=== PATIENT | female | born 1950 | race Caucasian/White ===

== ENCOUNTER 2022-08-07 11:02 | Outpatient (CLI) | payer MEDICARE, SELFPAY ==
[2022-08-07 21:53] LABS: Chloride* 103 mmol/L (96-114); Sodium* 138 mmol/L (135-149)
[2022-08-07 21:54] LABS: Potassium* 4.3 mmol/L (3.6-5.1)
[2022-08-07 21:56] LABS: Blood Urea Nitrogen* 17 mg/dL (7-30); Carbon Dioxide* 28 mmol/L (20-32); Cholesterol* 165 mg/dL (90-199); Creatinine* 0.7 mg/dL (0.5-1.5); Estimated Glomerular Filt Rate 93 ml/min
[2022-08-07 21:57] LABS: Calcium* 10.2 mg/dL (8.4-10.6); Glucose* 97 mg/dL (60-115); HDL Cholesterol* 34 mg/dL (>=50); LDL Cholesterol Calculated 58 mg/dL (<100); Triglycerides* 366 mg/dL (40-149)
== END 2022-08-07 11:03 | disposition home or self-care (01) ==
PROVIDERS: PCP Emergency Medicine; Visit Provider Emergency Medicine
DX: E78.5 Hyperlipidemia, unspecified (principal); I10 Essential (primary) hypertension; D64.9 Anemia, unspecified
CPT/HCPCS: 80048; 80061

== ENCOUNTER 2022-09-02 15:50 | Outpatient (CLI) | payer MEDICARE, SELFPAY | END 2022-09-02 15:51 | disposition home or self-care (01) | LOC: LKVREF 09-04 13:04 | PROVIDERS: PCP Emergency Medicine; Visit Provider Nurse Practitioner Family | DX: R30.0 Dysuria (principal); N39.0 Urinary tract infection, site not specified | CPT/HCPCS: 87086 ==

== ENCOUNTER 2022-11-20 10:55 | Outpatient (CLI) | payer MEDICARE, SELFPAY ==
[2022-11-20 21:57] LABS: Chloride* 101 mmol/L (96-114); Sodium* 137 mmol/L (135-149)
[2022-11-20 21:58] LABS: Potassium* 4.6 mmol/L (3.6-5.1)
[2022-11-20 22:00] LABS: Carbon Dioxide* 29 mmol/L (20-32); Creatinine* 0.8 mg/dL (0.5-1.5); Estimated Glomerular Filt Rate 79 ml/min
[2022-11-20 22:01] LABS: Blood Urea Nitrogen* 14 mg/dL (7-30); Calcium* 9.6 mg/dL (8.4-10.6); Glucose* 113 mg/dL (60-115)
== END 2022-11-20 10:56 | disposition home or self-care (01) ==
LOC: LKVREF 10:56
PROVIDERS: PCP Emergency Medicine; Visit Provider Emergency Medicine
DX: I10 Essential (primary) hypertension (principal); H35.60 Retinal hemorrhage, unspecified eye
CPT/HCPCS: 80048

== ENCOUNTER 2022-11-26 17:19 | Emergency (ER) | payer MEDICARE, SELFPAY ==
[2022-11-26] VITALS (7 sets, daily range): BP systolic 114–140; BP diastolic 55–62; PULSE 70–74; RESP 16–18; TEMP 36.6–36.7; O2SAT 95–100; BMI 20.7
--- NOTE | 2022-11-26 18:41 | ED.GENADULT ---
HPI - General Adult General Time Seen by Provider: 18:41 Date Seen: 11/26/22 Chief complaint: Weakness Stated complaint: Dehydrated Low Hemoglobin Time Seen by Provider: 11/26/22 18:29 Source: patient Mode of arrival: ambulatory Limitations: no limitations History of Present Illness HPI narrative: Patient is a 71 year white female who presents with her significant other, she has had weakness over the last couple of days. She has had no fever she has had no chills. She has had no cough, or chest pain. No leg swelling or edema. She feels she has not drank water and off over the last few days. She reports she has very poor water drinker. She has felt like this when she has had a low hemoglobin and when she has been dehydrated. Her hemoglobin done a few days ago was unremarkable she took a couple baby aspirins recently but usually is not on a blood thinner by her report she sees. She sees Dr. Rod for primary care. Has history of iron deficiency anemia. She takes iron her stools are typically dark. She has noticed no change in this no bright red blood per rectum Related Data Home Medications Medication Instructions Recorded Confirmed ropinirole 0.25 mg tablet 0.25 mg PO TID 05/02/22 11/26/22 cholecalciferol (vitamin D3) 25 1,000 unit PO DAILY 08/07/22 11/26/22 mcg (1,000 unit) tablet Previous Rx's Medication Instructions Recorded iron,carbonyl 65 mg-vitamin C 125 1 tab PO QDAY #90 tabs 06/10/22 mg tablet,delayed release (Vitron-C) metoprolol tartrate 50 mg tablet 50 mg PO BID #180 tabs 08/07/22 omeprazole 40 mg capsule,delayed 40 mg PO QDAY #90 caps 08/07/22 release ropinirole 0.25 mg tablet 0.25 mg PO TID PRN restless leg 08/07/22 syndrome #90 tabs hydrocodone 5 mg-acetaminophen 325 1 tab PO Q4H PRN PA D #60 tabs 10/14/22 mg tablet fluoxetine 20 mg capsule 40 mg PO QDAY #60 caps 11/20/22 rosuvastatin 20 mg tablet 20 mg PO QDAY #90 tabs 11/20/22 Allergies Allergy/AdvReac Type Severity Reaction Status Date / Time No Known Drug Allergies Allergy Verified 11/26/22 18:27 Review of Systems Status of ROS: Reports: 10 or more systems reviewed and unremarkable except as noted in History and below [facility] Medical History Claudication in peripheral vascular disease Noble of toe Depression Dilatation of thoracic aorta GERD (gastroesophageal reflux disease) GI bleed Iron deficiency anemia Peripheral artery disease Restless leg syndrome Retinal hemorrhage Family History Other Arun-Danlos syndrome Social History Narrative: Former smoker Smoking Status: Former smoker Do you use any of these nicotine containing products: None Second hand tobacco smoke exposure: No How often do you have a drink containing alcohol: never How often do you have six or more drinks on one occasion: Never AUDIT-C Alcohol total score: 0 Non-prescribed substance use: denies use Little interest or pleasure in doing things: not at all Feeling down, depressed, or hopeless: nearly every day service: No Exam Narrative: Exam Narrative: Objective: Patient's vital signs are unremarkable in general she is in no apparent distress No cyanosis Mouth is slightly dry Neck is supple Pulse regular Abdomen benign soft nontender , extremities are no edema, neurologic nonfocal Skin warm and dry Const: Vital Signs, click to edit/add: Vital Signs - 24 hr 11/26/22 18:27 11/26/22 19:08 11/26/22 19:15 Temperature 97.8 F Pulse Rate 71 74 Pulse Rate [Pulse Oximeter] 71 Respiratory Rate 18 Blood Pressure [Le ft Upper Arm] 123/59 L Pulse Oximetry 98 97 96 Oxygen Delivery Me thod Room Air 11/26/22 19:30 11/26/22 19:45 11/26/22 20:00 Temperature Pulse Rate 72 Pulse Rate [Pulse Oximeter] 72 74 Respiratory Rate 16 16 Blood Pressure [Le ft Upper Arm] 133/55 L 140/59 H Pulse Oximetry 97 100 100 Oxygen Delivery Me thod Room Air Room Air Course Vital Signs Vital signs: Initial Vital Signs Temperature 97.8 F 11/26/22 18:27 Temperature Source Temporal Artery Scan 11/26/22 18:27 Pulse Rate 71 11/26/22 18:27 Pulse Rhythm 11/26/22 18:27 Respiratory Rate 18 11/26/22 18:27 Blood Pressure 123/59 L 11/26/22 18:27 Blood Pressure Mean 80 11/26/22 18:27 Blood Pressure Position Supine 11/26/22 18:27 Pulse Oximetry 98 11/26/22 18:27 Oxygen Delivery Method 11/26/22 18:27 Vital Signs Temperature 97.8 F 11/26/22 18:27 Pulse Rate 71 11/26/22 18:27 Respiratory Rate 18 11/26/22 18:27 Blood Pressure 123/59 L 11/26/22 18:27 Pulse Oximetry 98 11/26/22 18:27 Oxygen Delivery Method 11/26/22 18:27 Temperature 97.8 F 11/26/22 18:27 Pulse Rate 74 11/26/22 20:00 Respiratory Rate 16 11/26/22 20:00 Blood Pressure 140/59 H 11/26/22 20:00 Pulse Oximetry 100 11/26/22 20:00 Oxygen Delivery Method 11/26/22 20:00 Medical Decision Making [facility] Narrative Medical decision making narrative: Patient is a 71 year white female with poor p.o. intake with a fluids, has history of anemia as well as dehydration. Will rehydrate with saline, check lab study including a heme 4 and basic 7. Because of her fatigue will also check a COVID/influenza/RSV swab. Her clinical examination looks unremarkable, her vital signs look reassuring. If these labs are reassuring and she gets fluid I think she can probably go home later today. She was in agreement with this plan. Addendum: The patient's hemoglobin is 8. She has required transfusions in the past. She has intermittent GI bleeding. She has had endoscopy upper and lower in the past. She is on iron replacement. I think it be reasonable to give her a unit of blood. And then have her follow up with primary care in the next day or 2 to recheck hemoglobin. I do not think she needs to stay in the hospital at this point given her hemodynamics are stable. She is in agreement with this plan. Due to the volume in the ER the patient will be transfer the hospital floor with her a beds available for transfusion. The patient can then be discharged home. We can follow up labs as needed. Patient's lab studies are negative for nasal swabs studies, electrolytes and panel 7. Patient has had transfusions before with this level hemoglobin it has helped her greatly. I think that be reasonable to do this time as well. She reports she has had upper and lower GI endoscopy within the last 6 months or so. Lab Data Labs: Lab Results 11/26/22 11/26/22 11/26/22 Range/Units 18:34 18:34 18:47 WBC 7.43 (4.50-11.00) K/uL RBC 2.68 L (4.00-5.20) m/uL Hgb 8.0 L (12.0-16.0) gm/dL Hct 23.7 L (33.0-51.0) % MCV 88 (80-100) fL MCH 30 (26-34) pg MCHC 34 (32-36) gm/dL RDW Coeff of Jodi 14.3 (11.5-15.5) % Plt Count 193 (140-440) K/uL Neut % (Auto) 53.3 (42.0-72.0) % Lymph % (Auto) 33.8 (20-44) % [place]ug[place] % (Auto) 10.2 (0.0-11.0) % Eos % (Auto) 2.0 (0.0-7.0) % Baso % (Auto) 0.4 (0.0-3.0) % Neut # (Auto) 3.96 (1.7-7.0) K/uL Lymph # (Auto) 2.51 (0.90-2.90) K/uL [place] # (Auto) 0.80 (0.00-0.90) K/UL Eos # (Auto) 0.15 (0.00-0.50) K/uL Baso # (Auto) 0.03 (0.00-0.30) K/uL Sodium 136 (135-149) mmol/L Potassium 4.2 (3.6-5.1) mmol/L Chloride 106 (96-114) mmol/L Carbon Dioxide 25 (20-32) mmol/L BUN 26 (7-30) mg/dL Creatinine 0.8 (0.5-1.5) mg/dL Estimated Creat Clear 43.30 Estimated GFR 79 ml/min Glucose 103 (60-115) mg/dL Calcium 8.5 (8.4-10.6) mg/dL SARS-CoV-2 (PCR) Negative SARS-CoV-2 (Negative) Influenza Type A (PCR) Negative PCR FLU A (Negative) Influenza Type B (PCR) Negative PCR FLU B (Negative) RSV (PCR) Negative PCR RSV (Negative) Discharge Plan Discharge Clinical Impression: Weakness, Dehydration, Anemia Patient Disposition: Home w/ Parent or Adult Condition: Improved Additional Instructions: Light activity, fluids and a regular basis, continue home medications, follow up with Dr. Rod next week. Return to ED sooner problems or concerns. Your given a transfusion of 1 unit packed red blood cells tonight. Recommend rechecking get her hemoglobin checked in the next couple of days. Continue home medicines Activity Level: Light activity Discharge Diet: Regular Prescriptions: No Action cholecalciferol (vitamin D3) 25 mcg (1,000 unit) tablet 1,000 unit PO DAILY ropinirole 0.25 mg tablet 0.25 mg PO TID PRN (Reason: restless leg syndrome) Qty: 90 3RF metoprolol tartrate 50 mg tablet 50 mg PO BID Qty: 180 3RF omeprazole 40 mg capsule,delayed release(DR/EC) 40 mg PO QDAY Qty: 90 3RF fluoxetine 20 mg capsule 40 mg PO QDAY Qty: 60 0RF Rx Instructions: take one capsule daily for one week and then 2 capsules daily rosuvastatin 20 mg tablet 20 mg PO QDAY Qty: 90 3RF Rx Instructions: stop rosuvastatin 10 ropinirole 0.25 mg tablet 0.25 mg PO TID Vitron-C 65 mg iron- 125 mg tablet,delayed release (DR/EC) 1 tab PO QDAY Qty: 90 3RF hydrocodone-acetaminophen 5-325 mg tablet 1 tab PO Q4H PRN (Reason: PA D) Qty: 60 0RF Follow Up/Referrals: Pema Rod MD [Primary Care Provider] - Stand Alone Forms: [employer] Info Instructions
[2022-11-26] MEDS: 0.9 % SODIUM CHLORIDE 500 ML 500 ML IV (18:51)
[2022-11-26 18:59] LABS: Basophils Absolute Auto 0.03 K/uL (0.00-0.30); Basophils Percent Auto 0.4 % (0.0-3.0); Eosinophils Absolute Auto 0.15 K/uL (0.00-0.50); Hematocrit 23.7 % (33.0-51.0); Immature Granulocytes Abs Auto 0.02 K/uL (0.00-0.30); Immature Granulocytes Pct Auto 0.3 %; Lymphocytes Absolute Auto 2.51 K/uL (0.90-2.90); Lymphocytes Percent Auto 33.8 % (20-44); Mean Corpuscular HGB Conc 34 gm/dL (32-36); Mean Corpuscular Hemoglobin 30 pg (26-34); Mean Corpuscular Volume 88 fL (80-100); Monocytes Percent Auto 10.2 % (0.0-11.0); Neutrophils Absolute Auto 3.96 K/uL (1.7-7.0); Neutrophils Percent Auto 53.3 % (42.0-72.0); Platelet Count* 193 K/uL (140-440); RDW Coefficient of Variation % 14.3 % (11.5-15.5); Red Blood Count 2.68 m/uL (4.00-5.20); White Blood Count* 7.43 K/uL (4.50-11.00)
[2022-11-26 19:08] LABS: Slide Review Reflex No
[2022-11-26 19:18] LABS: Chloride* 106 mmol/L (96-114); Sodium* 136 mmol/L (135-149)
[2022-11-26 19:19] LABS: Potassium* 4.2 mmol/L (3.6-5.1)
[2022-11-26 19:21] LABS: Carbon Dioxide* 25 mmol/L (20-32); Creatinine* 0.8 mg/dL (0.5-1.5); Estimated Glomerular Filt Rate 79 ml/min
[2022-11-26 19:22] LABS: Blood Urea Nitrogen* 26 mg/dL (7-30); Calcium* 8.5 mg/dL (8.4-10.6); Glucose* 103 mg/dL (60-115)
[2022-11-26 19:28] LABS: PCR FLU A Negative PCR FLU A (Negative); PCR FLU B Negative PCR FLU B (Negative); PCR RSV Negative PCR RSV (Negative)
[2022-11-26 19:29] LABS: SARS PCR* Negative SARS-CoV-2 (Negative)
--- NOTE | 2022-11-26 20:07 | ED.NURSE ---
Patient to the floor for outpatient transfusion. Patient will receive 1 u of PRBC. Patient will discharge from Med Surg once transfusion is completed.
--- NOTE | 2022-11-26 20:24 | PC.NURSE ---
pt transferred in bed with all belongings. Pt states she will get the blood and then her family members will come and get here. All cares explained-including plan of care.
--- NOTE | 2022-11-26 23:38 | PC.NURSE ---
Patient to 256 for blood transfusion. IV in right AC patent. Consent signed. Blood started at 2205 and verified with Prabha Harmon RN. No s/s of transfusion reaction noted.
--- NOTE | 2022-11-27 01:03 | PC.NURSE ---
DC note: 1 unit PRBC's completed w/o difficulty. Pt given all DC instructions, verbalized understanding, and escorted to ED front entrance by powerhouse mechanic supervisor.
== END 2022-11-27 01:21 | disposition home or self-care (01) ==
LOC: ED 19:21 → MEDSURG 19:32 → ED 11-27 01:14
PROVIDERS: Emergency Provider Family Medicine; PCP Emergency Medicine
DX: R53.1 Weakness (principal); E86.0 Dehydration; D64.9 Anemia, unspecified
CPT/HCPCS: 36415; 36430; 80048; 85025; 86850; 86900; 86901; 86922; 87502; 87634; 87635; 99283; 99284; J7120; P9016

== ENCOUNTER 2023-07-21 19:07 | Outpatient (CLI) | payer MEDICARE, SELFPAY | END 2023-07-21 19:08 | disposition home or self-care (01) | LOC: LKVREF 19:08 | PROVIDERS: PCP Emergency Medicine; Visit Provider Emergency Medicine | DX: D50.9 Iron deficiency anemia, unspecified (principal); R79.89 Other specified abnormal findings of blood chemistry | CPT/HCPCS: 82728 ==

== ENCOUNTER 2023-11-24 18:25 | Outpatient (CLI) | payer MEDICARE, SELFPAY | END 2023-11-24 18:26 | disposition home or self-care (01) | LOC: NFLDREF 11-25 06:57 | PROVIDERS: PCP Emergency Medicine; Referring Provider Emergency Medicine; Visit Provider Emergency Medicine | DX: D50.0 Iron deficiency anemia secondary to blood loss (chronic) (principal); I10 Essential (primary) hypertension | CPT/HCPCS: 80053; 82728 ==

== ENCOUNTER 2024-04-19 17:39 | Outpatient (CLI) | payer MEDICARE, SELFPAY | END 2024-04-19 17:40 | disposition home or self-care (01) | PROVIDERS: PCP Emergency Medicine; Visit Provider Emergency Medicine | DX: I10 Essential (primary) hypertension (principal); D64.9 Anemia, unspecified | CPT/HCPCS: 80053; 82728 ==

== ENCOUNTER 2025-05-18 13:49 | Outpatient (CLI) | payer MEDICARE, SELFPAY | END 2025-05-18 13:50 | disposition home or self-care (01) | PROVIDERS: Visit Provider Emergency Medicine | DX: L03.031 Cellulitis of right toe (principal); D50.8 Other iron deficiency anemias; I10 Essential (primary) hypertension; R53.83 Other fatigue | CPT/HCPCS: 80053; 82728; 84439; 84443; 87070 ==

== ENCOUNTER 2025-08-28 10:34 | Outpatient (CLI) | payer MEDICARE, SELFPAY | END 2025-08-28 10:35 | disposition home or self-care (01) | PROVIDERS: Visit Provider Physician Assistant Medical | DX: D50.8 Other iron deficiency anemias (principal); R53.82 Chronic fatigue, unspecified; Z79.899 Other long term (current) drug therapy | CPT/HCPCS: 80053; 82306; 82607; 82728; 82746; 83540; 83550; 84439; 84443 ==

== ENCOUNTER 2025-09-13 14:15 | Outpatient (CLI) | payer MEDICARE, SELFPAY | END 2025-09-13 14:16 | disposition home or self-care (01) | LOC: FRMREF 14:21 | PROVIDERS: Visit Provider Family Medicine | DX: Z00.00 Encounter for general adult medical examination without abnormal findings (principal); Z13.0 Encounter for screening for diseases of the blood and blood-forming organs and certain disorders involving the immune mechanism | CPT/HCPCS: 80053; 83540; 83550 ==

== ENCOUNTER 2025-09-18 13:33 | Outpatient (CLI) | payer MEDICARE, SELFPAY | END 2025-09-18 13:34 | disposition home or self-care (01) | LOC: NFLDREF 09-22 07:50 | PROVIDERS: PCP Family Medicine; Referring Provider Family Medicine; Visit Provider Family Medicine | DX: R79.89 Other specified abnormal findings of blood chemistry (principal) | CPT/HCPCS: 83520; 84439; 84443; 84481 ==

== ENCOUNTER 2025-09-25 10:42 | Outpatient (CLI) | payer MEDICARE, SELFPAY ==
--- NOTE | 2025-09-25 10:45 | CRLHL7_ITS ---
For Patients: As a result of the Century Cures Act, medical imaging exams and procedure reports are released immediately into your electronic medical record. You may view this report before your referring provider. If you have questions, please contact your health care provider. INDICATION: Low TSH level, fatigue COMPARISON: 12/22/2018 TECHNIQUE: Henderson scale and color Doppler images were acquired of the thyroid gland. FINDINGS: The thyroid gland demonstrates normal uniform echogenicity and has a smooth outer contour. The right lobe measures 3.0 x 0.8 x 0.9 cm and the left lobe measures 3.6 x 0.8 x 1.1 cm in size. There are no suspicious masses or nodules. The color Doppler images demonstrate normal vascularity. There is no evidence of cervical lymphadenopathy or parathyroid mass. IMPRESSION: Normal thyroid ultrasound. Dictated by Steven Sweet MD @ 09/25/2025 11:45:32 AM (Electronically Signed)
== END 2025-09-25 10:43 | disposition home or self-care (01) ==
LOC: US 10:43
PROVIDERS: PCP Family Medicine; Visit Provider Family Medicine
DX: R79.89 Other specified abnormal findings of blood chemistry (principal); R53.83 Other fatigue
CPT/HCPCS: 76536